=== PATIENT | male | born 1945 | race Caucasian/White ===

== ENCOUNTER 2021-02-09 08:02 | Day surgery (SDC) | payer MEDICARE, BC ==
[2021-02-02 16:02] LABS: BASOPHILS % (AUTO) 0.6 % (0-1); EOSINOPHILS # (AUTO) 0.2 X10'3 (0-0.9); MEAN CORPUSCULAR HEMOGLOBIN 31.7 PG (27.0-31.0); MEAN CORPUSCULAR HGB CONC 33.1 g/dL (33.0-36.5); MEAN PLATELET VOLUME 8.3 FL (7.4-10.4); MONOCYTES # (AUTO) 0.7 X10'3 (0-0.9); MONOCYTES % (AUTO) 9.4 % (2-12); NEUTROPHILS # (AUTO) 4.7 X10'3 (1.8-7.7); PRE OP HEMATOCRIT 42.8 % (42.0-52.0); PRE OP HEMOGLOBIN 14.1 g/dL (14.0-17.9); PRE OP PLATELET COUNT 210 X10'3 (140-440); RED BLOOD COUNT 4.46 X10'6 (4.70-6.10); RED CELL DISTRIBUTION WIDTH 12.8 % (11.5-14.5)
[2021-02-02 16:20] LABS: ALBUMIN 3.8 G/DL (3.4-5.0); ALBUMIN/GLOBULIN RATIO 1.2 (1.1-1.5); ALKALINE PHOSPHATASE 53 IU/L (46-116); BLOOD UREA NITROGEN 23 MG/DL (7-18); BUN/CREATININE RATIO 21.7 (5.4-32.0); CALCIUM 9.4 MG/DL (8.5-10.1); CHLORIDE 111 MMOL/L (99-107); CREATININE 1.06 MG/DL (0.60-1.10); PRE OP ALT 29 U/L (30-65); PRE OP ANION GAP 9 (8-16); PRE OP AST 19 U/L (10-37); PRE OP BILIRUB, TOTAL 0.4 MG/DL (0.0-1.0); PRE OP GLUCOSE 95 MG/DL (70-104); PRE OP POTASSIUM 3.9 MMOL/L (3.4-5.1); PRE OP SODIUM 145 MMOL/L (135-145); TOTAL CARBON DIOXIDE 25.3 MMOL/L (24-32); eGFR 68 ML/MIN
[~2021-02-09] VITALS: Ht 185.4 cm; Wt 83.9 kg
[~2021-02-09 08:02] MED LIST: ACET-2119 PO; BUPIVAcaine/PF 2.5mg/ml (0.25%) 10ml vial ONE; IBUP-1984 PO; LEVO5TAB29 PO; MAGN400C PO; POTASSIUM OTC PO; cefazolin/dext.iso 2gm/100ml 100 ML IV ONE; famotidine 20mg tablet PO ONE; ringers solution, lacted 1,000 ML IV SCH
[2021-02-09 08:35] VITALS: BP 117/63
[2021-02-09] MEDS ORDERED: morphine 4 MG/ML inj SYRINge IV PRN (09:05)
[2021-02-09] MEDS ORDERED: ondansetron/PF 4mg/2ml inj IV PRN (09:05)
[2021-02-09] MEDS ORDERED: morphine 2 MG/ML inj. syringe IV PRN (09:05)
[2021-02-09] MEDS ORDERED: labetalol 20mg/4ml (5mg/ml) syringe IV PRN (09:05)
[2021-02-09] MEDS ORDERED: hydrALAZINE 20mg/ml inj. IV PRN (09:05)
[2021-02-09] MEDS ORDERED: fentaNYL/PF 50MCG/1 ML 2ML syringe IV PRN ×2 (09:05)
[2021-02-09] MEDS ORDERED: ringers solution, lacted 1,000 ML IV SCH (09:05)
[2021-02-09] MEDS ORDERED: LIDOcaine 0.5% (5mg/ml) 50ml vial ONE (09:54)
[2021-02-09] MEDS ORDERED: fentaNYL/PF 50MCG/1 ML 2ML syringe ONE (10:32)
[2021-02-09] MEDS ORDERED: MIDAZolam 1 MG/ML 5ML VIAL ONE (10:32)
[2021-02-09] MEDS ORDERED: BUPIVAcaine/PF 2.5mg/ml (0.25%) 10ml vial ONE (10:37)
[2021-02-09 11:43] VITALS: BP 120/82
--- NOTE | 2021-02-09 11:43 | NUR ---
Received from OR via [facility] , accompanied by Anesthesiologist SHANTA and report given by Anesthesiolgist. PATIENT WITH 20G PIV IN RIGHT UE RUNNING LR AT 100. DENIES PAIN. LEFT WRIST DRESSING WITH THUMB SPICA PRESENT WITH NO DRAINAGE PRESENT. Addendum: 02/09/21 at 1149 by Tre Serna RN, RN Amended: Links added.
[2021-02-09 11:53] VITALS: BP 127/73
[2021-02-09 12:03] VITALS: BP 119/71
[2021-02-09 12:13] VITALS: BP 114/73
--- NOTE | 2021-02-09 12:23 | NUR ---
ALL DISCHARGE CRITERIA HAS BEEN MET. VSS, PAIN AT A TOLERABLE LEVEL, VOIDING AND ABLE TO SAFELY AMBULATE AND TRANSFER SELF. IV TAKEN OUT WITHOUT ANY COMPLICATIONS. ALL DISCHARGE INSTRUCTIONS COVERED WITH PATIENT AND ALL QUESTIONS ANSWERED. PATIENT TAKEN OUT VIA WHEELCHAIR TO PERSONAL VEHICLE WHERE FAMILY/FRIEND DROVE PATIENT HOME. Addendum: 02/09/21 at 1224 by Tre Serna RN, RN Amended: Links added.
== END 2021-02-09 12:23 | disposition home or self-care (01) ==
LOC: PAS 08:02
PROVIDERS: ATTEND Orthopaedic Surgery Hand Surgery
DX: M18.12 Unilateral primary osteoarthritis of first carpometacarpal joint, left hand (principal); M19.032 Primary osteoarthritis, left wrist; Z88.8 Allergy status to other drugs, medicaments and biological substances; Z98.890 Other specified postprocedural states; Z79.899 Other long term (current) drug therapy; Z87.891 Personal history of nicotine dependence; Z72.89 Other problems related to lifestyle
CPT/HCPCS: 25447; 36415; 80053; 82948; 85025; 93005; A6222; C1762; J2001; J2250; J3010; J3490; J7120; A4215; A4618; A6449; A7000